=== PATIENT | female | born 1985 | race Caucasian/White ===

== ENCOUNTER 2020-01-10 00:32 | Emergency (ER) | payer BC ==
[~2020-01-10] VITALS: Ht 167.6 cm; Wt 99.8 kg
[~2020-01-10 00:32] MED LIST: ACETAMINOPHEN-1 EAC1 PO; BACTRIM DS TAB1 EACH PO; CLEOCIN HCL150 MG PO; GIANVI 3 MG-0.1 EACH PO; IBUPROFEN 600600 M1 PO; MACROBID 100 M100 M1 PO; MEDROL DOSPAK21 TA1 PO; NORCO 5-325 TA1 EACH PO; PHENTERMINE HCL30 MG PO; PROBIOTIC1 EAC1 PO
[2020-01-10 02:38] VITALS: BP 136/50
== END 2020-01-10 02:39 | disposition home or self-care (01) ==
LOC: ER 00:32
DX: S03.42XA Sprain of jaw, left side, initial encounter (principal); Z87.891 Personal history of nicotine dependence; X58.XXXA Exposure to other specified factors, initial encounter; Y92.89 Other specified places as the place of occurrence of the external cause; Y93.89 Activity, other specified; Y99.8 Other external cause status

== ENCOUNTER → 2021-03-03 | Outpatient (CLI) | payer OTHER | LOC: RAD 14:09 | PROVIDERS: ATTEND Nurse Practitioner | DX: R07.89 Other chest pain (principal) ==